=== PATIENT | male | born 1945 | race Caucasian/White ===

== ENCOUNTER → 2017-05-10 | Outpatient (CLI) | payer MEDICARE, OTHER | LOC: LAB EV 15:28 | DX: N39.0 Urinary tract infection, site not specified (principal) | CPT/HCPCS: 87086 ==

== ENCOUNTER → 2017-05-31 | Outpatient (CLI) | payer MEDICARE, OTHER ==
[2017-06-01 14:39] LABS: Stool Occult Bld Immuno 1 Negative (NEGATIVE)
== END | disposition home or self-care (01) ==
LOC: LAB EV 10:00
PROVIDERS: Nurse Practitioner Family
DX: D64.9 Anemia, unspecified (principal); I10 Essential (primary) hypertension; N40.1 Benign prostatic hyperplasia with lower urinary tract symptoms
CPT/HCPCS: G0328

== ENCOUNTER 2018-10-31 11:49 | Day surgery (SDC) | payer MEDICARE, OTHER ==
[~2018-10-31] VITALS: Ht 175.3 cm; Wt 86.0 kg
[2018-10-31] MEDS ORDERED: ALLO100 PO (12:25)
[2018-10-31] MEDS ORDERED: LOSARTAN POTAS100 MG PO (12:26)
[2018-10-31] MEDS ORDERED: PRAZ2 PO (12:26)
[2018-10-31] MEDS ORDERED: AMLO10 PO (12:26)
[2018-10-31] MEDS ORDERED: ASPI81CH PO (12:26)
[2018-10-31] MEDS ORDERED: PRAV20 PO (12:27)
[2018-10-31] MEDS ORDERED: Vitamin B-12250 MCG PO (12:29)
[2018-10-31] MEDS ORDERED: FISH OIL 1,001000 MG PO (12:30)
[2018-10-31] MEDS ORDERED: CHOL10002 PO (12:30)
--- NOTE | 2018-10-31 17:51 | NUR ---
POST OP S/P DUAL CHAMBER PACEMAKER PACED IN THE 60S PER [facility] RN. R CHEST WALL DRESSING IS CDI. PT DENIES PAIN, SOB, CHEST TIGHTNESS. INDEP TO THE RESTROOM. POST OP VS STABLE AND IN PROGRESS. EDUCATED ON ARM RESTRICTIONS AND SLING WILL BE PLACED. PT VERB AN UNDERSTANDING. ORIENTED TO ROOM AND CALL LIGHT.
--- NOTE | 2018-11-01 05:31 | NUR ---
SHIFT SUMMARY PT POD#1 PACER PLACEMENT; RU CHEST WALL DRESSING DRY AND INTACT. RUE ROM LIMITED. TELEMETRY IN PLACE; NSR, PACED PER ASSEMBLY PERSON. VSS; PT DENIES SOB, CP/P AND NAUSEA. PT C/O "HEADACHE" RESOLVED WITH TYLENOL X1 DOSE. SCD'S TO BLE'S. PT UP INDEPENDENTLY. CALL LIGHT IN REACH; PT DEMONSTRATES USE.
--- NOTE | 2018-11-01 11:10 | NUR ---
pt provided with discharge instructions, peripheral IV removed wnl. pt provided with printed material and discharge/followup appointment instructions for [facility]. pt walked himself, per his request, to awaiting vehicle with personal belongings and biventricular pacemaker patient manual and serial number, escorted by his .
== END 2018-11-01 11:23 | disposition home or self-care (01) ==
LOC: MHTC 11:49 → SURS 17:31 → MHTC 11-01 11:23
PROC: 02H63JZ Insertion of Pacemaker Lead into Right Atrium, Percutaneous Approach (ICD-10-PCS; principal; 2018-10-31)
PROC: 0JH606Z Insertion of Pacemaker, Dual Chamber into Chest Subcutaneous Tissue and Fascia, Open Approach (ICD-10-PCS; principal; 2018-10-31)
PROC: 02HK3JZ Insertion of Pacemaker Lead into Right Ventricle, Percutaneous Approach (ICD-10-PCS; principal; 2018-10-31)
DX: I44.2 Atrioventricular block, complete (principal); I35.0 Nonrheumatic aortic (valve) stenosis; Q22.1 Congenital pulmonary valve stenosis; I10 Essential (primary) hypertension; E78.5 Hyperlipidemia, unspecified; M10.9 Gout, unspecified; R00.1 Bradycardia, unspecified; E66.9 Obesity, unspecified; Z68.28 Body mass index [BMI] 28.0-28.9, adult; Z79.899 Other long term (current) drug therapy; Z79.82 Long term (current) use of aspirin; Z87.891 Personal history of nicotine dependence; Z90.49 Acquired absence of other specified parts of digestive tract
CPT/HCPCS: 33208; 71045; 71046; 99152; 99153; A9270; C1769; C1785; C1898; J0690; J1644; J2250; J3010; J7030; J7040

== ENCOUNTER 2021-10-29 06:13 | Day surgery (SDC) | payer MEDICARE, OTHER ==
[~2021-10-29] VITALS: Ht 175.3 cm; Wt 84.3 kg
[~2021-10-29 06:13] MED LIST: ALLO100 PO; AMLO10 PO; ASPI81CH PO; CHOL10002 PO; FISH OIL 1,001000 MG PO; LOSARTAN POTAS100 MG PO; PRAV20 PO; PRAZ2 PO; Vitamin B-12250 MCG PO
[2021-10-29] MEDS ORDERED: MINIPRESS2 M1 (06:32)
[2021-10-29] MEDS ORDERED: NEBI5 (06:33)
--- NOTE | 2021-10-29 06:38 | NUR ---
10/29/21 0638 Kyra Casas TETRACAINE:[id number] PLEDGET:[id number] RIGHT EYE BY [facility].RXD
== END 2021-10-29 08:06 | disposition home or self-care (01) ==
LOC: ORSCSDS 06:13
PROVIDERS: Ophthalmology
PROC: 08RJ3JZ Replacement of Right Lens with Synthetic Substitute, Percutaneous Approach (ICD-10-PCS; principal; 2021-10-29 07:30)
DX: H25.11 Age-related nuclear cataract, right eye (principal); I10 Essential (primary) hypertension; I35.0 Nonrheumatic aortic (valve) stenosis; Z95.0 Presence of cardiac pacemaker; Z79.82 Long term (current) use of aspirin; Z79.899 Other long term (current) drug therapy
CPT/HCPCS: J2001; J2250; J3010; J3301; J7040; V2632

== ENCOUNTER → 2023-10-06 | Outpatient (CLI) | payer MEDICARE, OTHER ==
[~2023-10-06] MED LIST changes: +Acerola C500 MG PO; +MINIPRESS2 M1; +NEBI5; +THERA-D2000 UNIT PO; +Vitamin B-12100 MCG PO
[2023-10-06 19:01] LABS: BASOPHILS ABSOLUTE AUTO 0.04 K/mm3 (0.00-0.23); BASOPHILS PERCENT AUTO 1 % (0-2); EOSINOPHILS ABSOLUTE AUTO 0.04 K/mm3 (0.00-0.68); EOSINOPHILS PERCENT AUTO 1 % (0-6); Hematocrit 30.2 % (37.0-53.0); Hemoglobin 10.1 g/dL (13.5-17.5); IMMATURE GRAN ABSOLUTE AUTO 0.01 K/mm3 (0.00-0.10); IMMATURE GRAN PERCENT AUTO 0 % (0-1); LYMPHOCYTES ABSOLUTE AUTO 0.71 K/mm3 (0.84-5.20); LYMPHOCYTES PERCENT AUTO 15 % (21-46); MONOCYTES ABSOLUTE AUTO 0.37 K/mm3 (0.16-1.47); MONOCYTES PERCENT AUTO 8 % (4-13); Mean Corpuscular HGB 31.2 pg (26.0-34.0); Mean Corpuscular HGB Conc 33.4 g/dL (31.5-36.5); Mean Corpuscular Volume 93 fL (80-100); Mean Platelet Volume 11.8 fL (9.1-12.4); NEUTROPHILS ABSOLUTE AUTO 3.62 K/mm3 (1.96-9.15); NEUTROPHILS PERCENT AUTO 76 % (41-73); Platelet Count 141 K/mm3 (150-400); RDW Coefficient Variation 12.2 % (11.7-14.2); RDW Standard Deviation 42.3 fL (35.1-46.3); Red Blood Cell Count 3.24 M/mm3 (4.30-5.90); White Blood Cell Count 4.79 K/mm3 (4.00-11.30)
[2023-10-06 19:26] LABS: Albumin, Blood 4.4 g/dL (3.4-5.0); Albumin/Globulin Ratio 1.8 (0.8-1.8); Bun/Creatinine Ratio 19.1 (12.0-20.0); Calcium, Blood 8.9 mg/dL (8.5-10.1); Creatinine, Blood 1.36 mg/dL (0.60-1.20); Globulin, Blood 2.5 g/dL (2.2-4.0); Phosphorus, Blood 3.4 mg/dL (2.5-4.9); Potassium, Blood 4.9 mmol/L (3.5-5.5); Total Protein, Blood 6.9 g/dL (6.4-8.2)
== END | disposition home or self-care (01) ==
LOC: LAB SHORT 17:07 → LAB 17:07
PROVIDERS: Internal Medicine Hematology & Oncology
DX: D69.6 Thrombocytopenia, unspecified (principal)
CPT/HCPCS: 80053; 84100; 85025

== ENCOUNTER 2024-03-07 05:50 | Day surgery (SDC) | payer MEDICARE, OTHER ==
[~2024-03-07] VITALS: Ht 175.3 cm; Wt 86.0 kg
[2024-03-07] MEDS ORDERED: COLCHICINE0.6 MG PO (06:30)
[2024-03-07] MEDS ORDERED: PRAZ2 PO (06:31)
[2024-03-07] MEDS ORDERED: SOAANZ20 M1 (06:31)
[2024-03-07] MEDS ORDERED: propofoL 20 ML IV ONE (06:41)
[2024-03-07] MEDS ORDERED: Benzocaine Oral Spray 0.5ML UD ONE (06:44)
[2024-03-07 06:45] VITALS: BP 152/60
[2024-03-07] MEDS ORDERED: NS 1,000 ML IV ONE (06:45)
--- NOTE | 2024-03-07 07:23 | NUR ---
ASSUMED CARE FROM ANESTHESIA. PT AWAKE AND VERBALIZING WELL.
[2024-03-07 07:24] VITALS: BP 116/59
[2024-03-07 07:30] VITALS: BP 127/62
[2024-03-07 07:36] VITALS: BP 131/72
[2024-03-07 07:42] VITALS: BP 151/64
--- NOTE | 2024-03-07 07:44 | NUR ---
PT VERBALIZED UNDERSTANDING OF WRITTEN AND VERBAL D/C INST. IV REMOVED. PT WILL BE TAKEN OUT OF THE [facility] VIA W/C.
[2024-03-07 07:45] VITALS: BP 146/68
== END 2024-03-07 23:00 | disposition home or self-care (01) ==
LOC: MHTC 05:50
DX: I34.0 Nonrheumatic mitral (valve) insufficiency (principal); I11.0 Hypertensive heart disease with heart failure; I50.32 Chronic diastolic (congestive) heart failure; E78.5 Hyperlipidemia, unspecified; G47.33 Obstructive sleep apnea (adult) (pediatric); Z79.82 Long term (current) use of aspirin; Z79.899 Other long term (current) drug therapy; Z95.2 Presence of prosthetic heart valve; Z88.7 Allergy status to serum and vaccine
CPT/HCPCS: 93312; 93325; A9270; J2704; J7030